=== PATIENT | female | born 1945 | race Caucasian/White ===

== ENCOUNTER 2019-06-07 12:41 | Inpatient (IN) | payer MEDICARE, MEDICAID ==
[~2019-06-07] VITALS: Ht 162.6 cm; Wt 64.5 kg
--- NOTE | 2019-06-07 12:49 | NUR ---
EKG in progress
[2019-06-07] MEDS ORDERED: aspirin 81mg tab.chew PO ONE ×2 (12:55→13:10)
[2019-06-07] MEDS ORDERED: nitroGLYCERIN 1gm ointment UD TP ONE (13:10)
[2019-06-07 13:28] LABS: BASOPHILS # (AUTO) 0.1 X10'3 (0-0.2); BASOPHILS % (AUTO) 0.9 % (0-1); EOSINOPHILS # (AUTO) 0.2 X10'3 (0-0.9); EOSINOPHILS % (AUTO) 2.1 % (0-6); HEMATOCRIT 41.2 % (35.0-45.0); HEMOGLOBIN 14.3 g/dl (12.0-16.0); LYMPHOCYTES # (AUTO) 1.6 X10'3 (1.1-4.8); LYMPHOCYTES % (AUTO) 21.5 % (21-51); MEAN CORPUSCULAR HEMOGLOBIN 33.6 PG (27.0-31.0); MEAN CORPUSCULAR HGB CONC 34.7 g/dL (33.0-36.5); MEAN CORPUSCULAR VOLUME 96.8 FL (78-98); MEAN PLATELET VOLUME 8.4 FL (7.4-10.4); MONOCYTES # (AUTO) 0.5 X10'3 (0-0.9); MONOCYTES % (AUTO) 6.5 % (2-12); PLATELET COUNT 234 X10'3 (140-440); RED BLOOD COUNT 4.26 X10'6 (4.20-5.60); RED CELL DISTRIBUTION WIDTH 13.1 % (11.5-14.5); WHITE BLOOD COUNT 7.3 X10'3 (4.5-11.0)
[2019-06-07 13:38] LABS: ALANINE AMINOTRANSFERASE 30 U/L (12-78); ALBUMIN 4.1 G/DL (3.4-5.0); ALBUMIN/GLOBULIN RATIO 1.1 (1.1-1.5); ALKALINE PHOSPHATASE 111 IU/L (46-116); ANION GAP 8 (8-16); ASPARTATE AMINO TRANSFERASE 22 U/L (10-37); BILIRUBIN,TOTAL 0.3 MG/DL (0.1-1.0); BLOOD UREA NITROGEN 11 MG/DL (7-18); BUN/CREATININE RATIO 12.5 (6.6-38.0); CALCIUM 8.6 MG/DL (8.5-10.1); CHLORIDE 105 MMOL/L (99-107); CREATININE 0.88 MG/DL (0.40-0.90); GLUCOSE 94 MG/DL (70-104); POTASSIUM 4.1 MMOL/L (3.5-5.1); SODIUM 140 MMOL/L (135-145); TOTAL CARBON DIOXIDE 26.8 MMOL/L (24-32); TOTAL PROTEIN 7.8 G/DL (6.4-8.2); eGFR 63 ML/MIN
[2019-06-07] MEDS ORDERED: normal saline 1000ml 1,000 ML IV SCH (14:16)
[2019-06-07] MEDS ORDERED: magnesium hydroxide 30ml (MOM) UD suspension PO PRN (14:20)
[2019-06-07] MEDS ORDERED: nitroGLYCERIN 0.4mg/hour patch TD ONE (14:20)
[2019-06-07] MEDS ORDERED: acetaminophen 325mg tablet PO PRN (14:20)
[2019-06-07] MEDS ORDERED: ondansetron/PF 4mg/2ml inj IV PRN (14:20)
[2019-06-07] MEDS ORDERED: morphine 2 MG/ML inj. syringe IV PRN ×2 (14:20)
[2019-06-07] MEDS ORDERED: mag hydrox/Alum hydrox/simeth 30ml oral suspension PO PRN (14:20)
[2019-06-07] MEDS ORDERED: nicotine 21mg patch - 24 hr TD ONE (14:40)
[2019-06-07] MEDS ORDERED: LORazepam 2 mg/ml vial IV ONE (14:40)
[2019-06-07] MEDS ORDERED: enoxaparin 100mg/ml syringe SUBCUT ONE (14:45)
[2019-06-07 15:05] VITALS: BP 173/79
--- NOTE | 2019-06-07 15:05 | NUR ---
PATIENT ARRIVED TO UNIT, VITAL SIGNS STABLE. PATIENT IS ANXIOUS AND WANTS TO SMOKE A CIGARETTE. EDUCATED PATIENT THAT NICOTINE PATCH IS ON, AND IT IS NOT PERMITTED FOR HER TO SMOKE WHILE SHE'S IN THE HOSPITAL.
--- NOTE | 2019-06-07 15:20 | NUR ---
DENIES CHEST PAIN, JAW PAIN, ARM PAIN, END OR NAUSEA AT THIS TIME.TELE SHOWS SR WITH BBB AND PVC. HOB UP CALL LIGHT IN REACH. Addendum: 06/07/19 at 1830 by Teresa Lagunas RN Amended: Links added.
[2019-06-07] MEDS ORDERED: aminophylline 250mg/10ml inj. IV PRN (16:15)
[2019-06-07] MEDS ORDERED: nitroGLYCERIN 0.4mg SUBLingual tab SL PRN (16:15)
[2019-06-07] MEDS ORDERED: metoprolol tartrate 1mg/ml inj IV PRN (16:15)
[2019-06-07] MEDS ORDERED: regadenoson 0.4mg/5ml syringe IV PRN (16:15)
--- NOTE | 2019-06-07 16:55 | NUR ---
PATIENT IMPULSIVE, GETTING OUT OF BED WITHOUT ASSISTANCE. ADVISED PATIENT TO CALL FOR HELP GETTING OUT OF BED FOR SAFETY. PATIENT IS AGITATED. WANTS TO GO SMOKE. PAGED DR. EDWARDS FOR SOMETHING FOR ANXIETY. RECEIVED TELEPHONE ORDERS FOR ATIVAN q4H PRN. WILL ADMINISTER AFTER IT IS VERIFIED. WILL CONTINUE TO MONITOR.
[2019-06-07] MEDS ORDERED: LORazepam 2 mg/ml vial IV PRN (17:00)
--- NOTE | 2019-06-07 17:00 | NUR ---
PATIENT C/O ANXIETY,WANTS TO SMOKE. NICOTINE PATCH ON AT RT UPPER ARM. CALL PLACED TO DR. EDWARDS TO APPRISE HIM OF PATIENT'S COMPLAINTS. ORDERS RECEIVED AND NOTED. 0.5 IV ATIVAN GIVEN PER ORDER. Addendum: 06/07/19 at 1817 by Teresa Lagunas RN Amended: Links added.
--- NOTE | 2019-06-07 18:02 | NUR ---
Patient stating that she must go out to smoke, and that the ativan and nicotine patch are doing nothing for her. Educated patient that she cannot leave the hospital nor have nicotine as she has a aneta scan tomorrow. Patient wants to leave AMA. Paged Dr Luna to notify him that patient is leaving AMA, awaiting call back from Dr Luna.
--- NOTE | 2019-06-07 18:07 | NUR ---
DR. EDWARDS CALLED BACK ACKNOWLEDGING THAT PATIENT WILL LEAVE AMA.
--- NOTE | 2019-06-07 18:17 | NUR ---
PATIENT STATES SHE WANTS TO LEAVE AND SMOKE. PATIENT REFUSED TO STAY THE NIGHT AND HAVE STRESS TEST IN AM; VERY ADAMANT IN PLAN TO LEAVE. PATIENT SIGNED AMA. LACY MCQUEEN'D WITH CATH INTACT; 2X2 PRESSURE DRESSING APPLIED. CALL PLACED TO DR. EDWARDS. Addendum: 06/07/19 at 1821 by Teresa Lagunas RN Amended: Links added.
[2019-06-07] MEDS ORDERED: heparin, porcine 5000 units/ml vial SQ SCH (20:00)
[2019-06-07] MEDS ORDERED: carvedilol 6.25mg tablet PO SCH (20:00)
[2019-06-08] MEDS ORDERED: aspirin 81mg tablet.DR PO SCH (08:00)
== END 2019-06-07 18:15 | disposition left against medical advice (07) | DRG 311 ==
LOC: ER 12:41 → MED 3N 14:49
PROVIDERS: ADMIT Family Medicine; ATTEND Family Medicine
DX: I24.9 Acute ischemic heart disease, unspecified (principal); E03.9 Hypothyroidism, unspecified; E78.00 Pure hypercholesterolemia, unspecified; E78.5 Hyperlipidemia, unspecified; F17.200 Nicotine dependence, unspecified, uncomplicated; I10 Essential (primary) hypertension; Z53.21 Procedure and treatment not carried out due to patient leaving prior to being seen by health care provider; F41.9 Anxiety disorder, unspecified; I73.9 Peripheral vascular disease, unspecified; J44.9 Chronic obstructive pulmonary disease, unspecified; Z96.649 Presence of unspecified artificial hip joint; Z88.8 Allergy status to other drugs, medicaments and biological substances; Z88.2 Allergy status to sulfonamides; Z88.6 Allergy status to analgesic agent; Z79.899 Other long term (current) drug therapy; Z79.82 Long term (current) use of aspirin; Z79.890 Hormone replacement therapy; Z56.0 Unemployment, unspecified
CPT/HCPCS: 36415; 71045; 80053; 83735; 83880; 84484; 85025; 93005; 93306; 99285; G0378; J1650; J2060; J7030